=== PATIENT | male | born 1980 | race African-American/Black ===

== ENCOUNTER 2017-12-09 00:37 | Emergency (ER) | payer SELFPAY ==
[2017-12-09] MEDS ORDERED: Lidocaine 1% 20 ML MDV ONE (00:51)
[2017-12-09] MEDS ORDERED: Bacitracin Zinc 1 Packet ONE (01:02)
== END 2017-12-09 01:11 | disposition home or self-care (01) ==
LOC: BURERS 00:37
DX: S61.411A Laceration without foreign body of right hand, initial encounter (principal); F17.210 Nicotine dependence, cigarettes, uncomplicated; I10 Essential (primary) hypertension; W45.8XXA Other foreign body or object entering through skin, initial encounter
CPT/HCPCS: 12001; J2001